=== PATIENT | female | born 1985 | race Caucasian/White ===

== ENCOUNTER 2017-06-06 17:14 | Emergency (ER) | payer OTHER ==
[~2017-06-06] VITALS: Ht 175.3 cm; Wt 68.0 kg
[2017-06-06 17:15] VITALS: BP 112/72
[2017-06-06] MEDS ORDERED: NEURONTIN600 MG PO (17:29)
[2017-06-06] MEDS ORDERED: IBUPROFEN 600600 M1 PO (17:29)
[2017-06-06] MEDS ORDERED: AMITRIPTYLINE H50 M4 PO (17:29)
== END 2017-06-06 18:32 | disposition home or self-care (01) ==
LOC: ER 17:14
DX: Z76.0 Encounter for issue of repeat prescription (principal); F32.9 Major depressive disorder, single episode, unspecified; F17.210 Nicotine dependence, cigarettes, uncomplicated; G89.29 Other chronic pain